=== PATIENT | female | born 1985 | race African-American/Black ===

== ENCOUNTER 2016-04-05 05:26 | Emergency (ER) ==
[2016-04-05] MEDS ORDERED: NORFLEX IM ONE (06:46)
[2016-04-05] MEDS ORDERED: TORADOL IM ONE (06:47)
--- NOTE | 2016-04-05 06:53 | PROVIDER DOCUMENTATION ---
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 Has a history of back spasms and low back pain. Says sometimes she has to be off of her feet.) Any recent injury?: No Locality of Occurance: Work Similar Symptoms Previously?: Yes Recently seen or treated by another doctor?: No - FALL INJURY Location of Pain/Injury: reports: back Pain Radiation: reports: no radiation Loss of Consciousness: no loss of consciousness Injury Associated Symptoms: reports: denies symptoms - BACK & NECK PAIN/INJURY Back/Neck Pain Location: reports: lumbar spine Context / Method of Injury: reports: lifting, overuse Associated Symptoms: reports: lower back pain, muscle spasms History of Chronic Neck or Back Pain?: Yes - TRUNK INJURY Location of Injury(s)/Pain: reports: extends to back Context / Method of Injury: reports: none Associated Symptoms: reports: back/neck pain - HIP/PELVIS PAIN/INJURY Pain Radiation: reports: back Associated Symptoms: reports: muscle spasms - LOWER EXTREMITY PAIN/INJURY Associated Symptoms: reports: denies symptoms - UPPER EXTREMITY PAIN/INJURY Associated Symptoms: reports: muscle spasms Review of Systems - Adult - REVIEW OF SYSTEMS - ADULT ROS:: limited per condition Constitutional: reports: no symptoms reported Eyes: reports: no symptoms reported Ears, Nose, Mouth & Throat: reports: no symptoms reported Cardiovascular: reports: no symptoms reported Respiratory: reports: no symptoms reported Gastrointestinal: reports: no symptoms reported Genitourinary: reports: no symptoms reported Musculoskeletal: reports: back pain, joint pain, muscle weakness Integumentary: reports: no symptoms reported, itching Neurological: reports: no symptoms reported Psychiatric: reports: no symptoms reported Endocrine: reports: no symptoms reported Hematologic/Lymphatic: reports: no symptoms reported Allergic/Immunologic: reports: no symptoms reported All Other Systems: Reviewed and Negative Past History - Adult - PAST MEDICAL HISTORY-ADULT Review of Records: reports: Old Records Reviewed, Nursing Assessment Review, Medications Reviewed, Social history reviewed & non-contributory. Major Childhood Illnesses: reports: denies history Cardiovascular: reports: denies history Respiratory: reports: asthma Gastrointestinal: reports: denies history Obstetrical/Gynecological: reports: denies history Genitourinary: reports: denies history Musculoskeletal: reports: chronic pain Neurological: reports: denies history Psychiatric: reports: anxiety Endocrine/Immune: reports: denies history Other Conditions: reports: denies history - PRIOR SURGERIES/PROCEDURES Surgical/Procedure History: reports: none - PRIOR HOSPITALIZATIONS Prior Hospitalizations: reports: for other non-related - IMMUNIZATION STATUS Childhood Immunizations: See Nurse Assessment Flu Vaccine: See Nurse Assessment - FAMILY HISTORY Family History: reviewed, not pertinent Physical Exam-Injury Related - Physical Exam-Injury Related Initial Vital Signs Reviewed: Yes General Appearance: appears well Eyes: PERRL/EOMI, pink conjunctivae, fundi clear, no AV nicking Head, Ears, Nose, Mouth & Throat: normocephalic/atraumatic, moist mucous membranes, normal ENT inspection Neck: non-tender, full range of motion, supple Respiratory: chest non-tender, lungs clear, normal breath sounds, no pleuratic chest pain Cardiovascular: normal peripheral pulses, regular rate, rhythm, no edema Chest/Breast: deferred Abdominal Exam: normal bowel sounds, non tender, soft, no organomegaly Female Genitalia/Pelvic Exam: deferred Rectal Exam: deferred Hemoccult Exam: deferred Lymphatic: no adenopathy Back Exam: no vertebral tenderness, decreased range of motion, muscle spasm, vertebral tenderness Extremity: normal range of motion Integumentary: normal color, warm/dry 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, grossly normal, no motor/sensory deficits Progress - PLAN OF CARE/RESULTS Progress/Plan/Lab Results: Patient asleep in room Departure - Departure Time of Disposition Order: 06:54 DIAGNOSIS: Back pain Disposition: HOME 01 Certified Medical Emergency: Emergent Condition: Stable Prescriptions: Naproxen Sodium [Anaprox Ds] 550 mg PO BID #20 tablet Cyclobenzaprine [Flexeril] 10 mg PO TID #20 tablet Physician Attestation - Physician Attestation I, the provider, attest to the following statement:: Alessandro Ervin Physician documentation Attestation:: This documentation recorded by the scribe accurately reflects the service I personally performed and the decisions made by me.
[2016-04-05 07:31] VITALS: BP 119/78
== END 2016-04-05 07:31 | disposition home or self-care (01) ==
LOC: ED 05:26
DX: M54.5 Low back pain (principal); X50.9XXA Other and unspecified overexertion or strenuous movements or postures, initial encounter; M62.830 Muscle spasm of back; M25.50 Pain in unspecified joint; G89.29 Other chronic pain
CPT/HCPCS: J1885; J2360

== ENCOUNTER 2016-04-13 07:38 | Emergency (ER) ==
[2016-04-13 07:58] LABS: MANUAL DIFF NEEDED? NO
[2016-04-13 08:01] LABS: BASO% 0.2 % (0.0-0.8); HEMATOCRIT 38.5 % (37.0-47.0); HEMOGLOBIN 12.6 g/dL (12.0-16.0); LYMPH# 1.11 X1000 (1.2-3.4); LYMPH% 10.9 % (20.5-51.1); MCH 26.8 PG (27-31); MCHC 32.7 g/dL (33-37); MCV 81.7 FL (81-99); MONO% 4.9 % (1.7-9.3); MPV 10.2 FL (7.4-10.4); PLT 264 X1000 (130-400); RBC 4.71 XMIL (4.2-5.4)
[2016-04-13 08:03] LABS: URINE MICRO REVIEW NEEDED? NO; URINE SOURCE CLEAN CATCH
[2016-04-13 08:07] LABS: BILIRUBIN URINE NEGATIVE (NEGATIVE); BLOOD URINE TRACE (NEGATIVE); COLOR YELLOW; GLUCOSE URINE NEGATIVE (NEGATIVE); LEUKOCYTES URINE SMALL (NEGATIVE); NITRITE URINE NEGATIVE (NEGATIVE); PH URINE 5.5; PROTEIN URINE 50 mg/dL (NEGATIVE); SP GRAVITY URINE 1.035; TURBIDITY URINE HAZY (CLEAR); UR EPITHELIAL CELLS <10 /HPF (<10); URINE BACTERIA 1+ /HPF; URINE CULTURE NEEDED? YES; URINE RBC <10 /HPF (<10); UROBILINOGEN URINE 2 mg/dL (NORMAL)
[2016-04-13] MEDS ORDERED: ZOFRAN ODT PO ONE (08:08)
[2016-04-13] MEDS ORDERED: ROCEPHIN IM ONE (08:08)
[2016-04-13] MEDS ORDERED: XYLOCAINE-MPF 1% INJ ONE (08:08)
[2016-04-13 08:17] LABS: AGAP 18; ALBUMIN 4.6 g/dL (3.5-5.0); ALKALINE PHOSPHATASE 71 U/L (32-104); AMYLASE 124 U/L (20-200); BUN 8 mg/dL (8-22); CALCIUM 9.5 mg/dL (8.8-10.2); CHLORIDE 102 mmol/L (98-107); COSMO 281; GOT 20 U/L (10-30); GPT 8 U/L (10-36); LIPASE 26 U/L (13-60); POTASSIUM 3.7 mmol/L (3.5-5.1); SODIUM 142 mmol/L (136-145); TCO2 22 mmol/L (25-35); TOTAL BILIRUBIN 0.43 mg/dL (0.20-1.00); TOTAL PROTEIN 8.2 g/dL (6.3-8.3)
--- NOTE | 2016-04-13 09:22 | PROVIDER DOCUMENTATION ---
HPI-General Adult - General Chief Complaint: Nausea/Vomiting Stated Complaint: FLU LIKE SX Time Seen by Provider: 04/13/16 07:55 Source: patient Allergies/Adverse Reactions: Patient Allergies Allergy/AdvReac Type Severity Reaction Status Date / Time No Known Allergies Allergy Verified 04/13/16 08:10 Home Medications: Home Medication List Medication Instructions Recorded Confirmed Last Taken Type Albuterol Sulfate Inhaler 2 puff INH Q6H PRN PRN 10/14/15 04/13/16 Unknown History [Ventolin Hfa] Nitrofurantoin Monohyd/M-Cryst 100 mg PO TID #14 capsule 04/13/16 Unknown Rx [Macrobid 100 mg Capsule] Ondansetron Odt [Zofran 4 mg Odt] 4 mg PO Q6H PRN PRN #10 tablet 04/13/16 Unknown Rx Tramadol [Ultram] 50 mg PO Q8HR #10 tablet 04/13/16 Unknown Rx - History of Present Illness -Gen Adult Nature of Presenting Problems: N/V/F/LBP since yesterday. Denies dysuria/preg/diarrhea. Location of Pain/Injury: reports: back Pain Radiation: reports: no radiation Quality of Pain: reports: aching Severity: reports: moderate Onset/Duration: reports: last night Timing: reports: still present Context/Activities at Onset: reports: none Modifying Factors: improves with: nothing Associated Symptoms: reports: loss of appetite, malaise, nausea, vomiting. denies: anxiety, cough, diarrhea, shortness of breath, weakness Similar Symptoms Previously?: No Recently seen or treated by another doctor?: No Review of Systems - Adult - REVIEW OF SYSTEMS - ADULT Constitutional: reports: see HPI, fever, fatique Eyes: reports: no symptoms reported Ears, Nose, Mouth & Throat: reports: no symptoms reported Cardiovascular: reports: no symptoms reported Respiratory: reports: no symptoms reported Gastrointestinal: reports: no symptoms reported, nausea, vomiting Genitourinary: reports: no symptoms reported Musculoskeletal: reports: no symptoms reported Integumentary: reports: no symptoms reported Neurological: reports: no symptoms reported Endocrine: reports: no symptoms reported All Other Systems: Reviewed and Negative Past History - Adult - PAST MEDICAL HISTORY-ADULT Review of Records: reports: Nursing Assessment Review, Medications Reviewed Major Childhood Illnesses: reports: denies history Cardiovascular: reports: denies history Respiratory: reports: asthma Gastrointestinal: reports: denies history Obstetrical/Gynecological: reports: denies history Genitourinary: reports: denies history Musculoskeletal: reports: chronic pain Neurological: reports: denies history Psychiatric: reports: anxiety Endocrine/Immune: reports: denies history Other Conditions: reports: denies history - PRIOR SURGERIES/PROCEDURES Surgical/Procedure History: reports: none - PRIOR HOSPITALIZATIONS Prior Hospitalizations: reports: for other non-related - IMMUNIZATION STATUS Childhood Immunizations: See Nurse Assessment Flu Vaccine: See Nurse Assessment - FAMILY HISTORY Family History: reviewed, not pertinent Physical Exam-General - PHYSICAL EXAM-ADULT Initial Vital Signs Reviewed: Yes - CONSTITUTIONAL General Appearance: appears well, alert, no apparent distress - EYES Eyes: PERRL/EOMI, pink conjunctivae - HEAD, EARS, NOSE, MOUTH & THROAT HENMT: normocephalic/atraumatic, moist mucous membranes - NECK Neck: non-tender, full range of motion - RESPIRATORY Respiratory: chest non-tender, lungs clear, normal breath sounds - CARDIOVASCULAR Cardiovascular: normal peripheral pulses, regular rate, rhythm - GASTROINTESTINAL (ABDOMEN) Abdominal Exam: normal bowel sounds, soft, tenderness (Mild diffused tenderness) - MUSCULOSKELETAL Extremity: normal range of motion, non-tender, normal gait - SKIN Integumentary: normal color, normal turgor, warm/dry - NEUROLOGIC Neurologic: no motor/sensory deficits, abnormal cerebellar tests - PSYCHIATRIC Psych/Mental Status: normal mood/affect, normal thought content, normal thought process, oriented x 3 Progress - PLAN OF CARE/RESULTS Progress/Plan/Lab Results: Laboratory Results - last 24 hr 04/13/16 04/13/16 04/13/16 07:48 07:48 07:55 WBC 10.18 RBC 4.71 Hgb 12.6 Hct 38.5 MCV 81.7 MCH 26.8 L MCHC 32.7 L RDW Std Deviation 15.2 H Plt Count 264 MPV 10.2 Neut % (Auto) 84.0 H Lymph % (Auto) 10.9 L [place] % (Auto) 4.9 Eos % (Auto) 0.0 Baso % (Auto) 0.2 Neut # (Auto) 8.55 H Lymph # (Auto) 1.11 L [place] # (Auto) 0.50 Eos # (Auto) 0.00 Baso # (Auto) 0.02 Sodium 142 Potassium 3.7 Chloride 102 Carbon Dioxide 22 L Anion Gap 18 BUN 8 Creatinine 0.7 Estimated GFR/1.73 m2 > 60 BUN/Creatinine Ratio 11 Glucose 96 Calculated Osmolality 281 Calcium 9.5 Total Bilirubin 0.43 AST 20 ALT 8 L Alkaline Phosphatase 71 Total Protein 8.2 Albumin 4.6 Globulin 3.6 Albumin/Globulin Ratio 1.3 Amylase 124 Lipase 26 Urine Source CLEAN CATCH Urine Color YELLOW Urine Turbidity HAZY Urine pH 5.5 Ur Specific [place] 1.035 Urine Protein 50 A Ur Glucose (Stick) NEGATIVE Ur Ketones (Stick) >150 Urine Blood TRACE A Urine Nitrite NEGATIVE Urine Bilirubin NEGATIVE Urobilinogen Dipstick 2 A Urine Leukocytes SMALL A Urine WBC (Auto) 10-20 A Urine RBC (Auto) <10 U Epithel Cells (Auto) <10 Urine Bacteria (Auto) 1+ Urine Test 04/13/16 07:55 WBC RBC Hgb Hct MCV MCH MCHC RDW Std Deviation Plt Count MPV Neut % (Auto) Lymph % (Auto) [place] % (Auto) Eos % (Auto) Baso % (Auto) Neut # (Auto) Lymph # (Auto) [place] # (Auto) Eos # (Auto) Baso # (Auto) Sodium Potassium Chloride Carbon Dioxide Anion Gap BUN Creatinine Estimated GFR/1.73 m2 BUN/Creatinine Ratio Glucose Calculated Osmolality Calcium Total Bilirubin AST ALT Alkaline Phosphatase Total Protein Albumin Globulin Albumin/Globulin Ratio Amylase Lipase Urine Source Urine Color Urine Turbidity Urine pH Ur Specific [place] Urine Protein Ur Glucose (Stick) Ur Ketones (Stick) Urine Blood Urine Nitrite Urine Bilirubin Urobilinogen Dipstick Urine Leukocytes Urine WBC (Auto) Urine RBC (Auto) U Epithel Cells (Auto) Urine Bacteria (Auto) Urine Test NEGATIVE Bedside Urine ED: Urine Bedside Start: 04/13/16 07:46 Freq: ORDERED Status: Inactive Activity Type Activity Date Activity User Co-Sign Detail Recorded Client Recorded Date Recorded By Edit Status 04/13/16 08:00 [id number] Active=>Inactive [id number] 04/13/16 08:00 [id number] Orders Category Date Time Status ED: Urine Bedside ORDERED Care 04/13/16 07:46 Inactive AMYLASE [CHEM] Stat Lab 04/13/16 07:48 Completed CBC WITH ELECTRONIC DIFF [HEME] Stat Lab 04/13/16 07:48 Completed COMPREHENSIVE METABOLIC PANEL [CHEM] Stat Lab 04/13/16 07:48 Completed DIRECT STREP Stat Lab 04/13/16 07:50 Completed INFLUENZA SCREEN A/B Stat Lab 04/13/16 08:45 Received LIPASE [CHEM] Stat Lab 04/13/16 07:48 Completed UCG [ TEST-URINE] [PREG] Stat Lab 04/13/16 07:55 Completed URINALYSIS W/POSS RFLX CULT [URINALYSIS] Stat Lab 04/13/16 07:55 Completed URINE CULTURE [RM] Routine Lab 04/13/16 08:17 Received CefTRIAXONE [Rocephin] Med 04/13/16 08:08 Discontinued 1 gm IM NOW ONE Lidocaine 1% Pf [Xylocaine-Mpf 1%] Med 04/13/16 08:08 Discontinued 5 ml INJ NOW ONE Ondansetron Odt [Zofran Odt] Med 04/13/16 08:08 Discontinued 4 mg PO NOW ONE Vital Signs Temp Pulse Resp BP Pulse Ox 04/13/16 07:41 98.3 F 70 18 127/94 100 No Known Allergies Allergy (Verified 04/13/16 08:10) Albuterol Sulfate Inhaler [Ventolin Hfa] 2 puff INH Q6H PRN PRN 10/14/15 Laboratory 04/13/16 04/13/16 04/13/16 07:55 07:55 07:48 WBC 10.18 RBC 4.71 Hgb 12.6 Hct 38.5 MCV 81.7 MCH 26.8 L MCHC 32.7 L RDW Std Deviation 15.2 H Plt Count 264 MPV 10.2 Neut % (Auto) 84.0 H Lymph % (Auto) 10.9 L [place] % (Auto) 4.9 Eos % (Auto) 0.0 Baso % (Auto) 0.2 Neut # (Auto) 8.55 H Lymph # (Auto) 1.11 L [place] # (Auto) 0.50 Eos # (Auto) 0.00 Baso # (Auto) 0.02 Sodium Potassium Chloride Carbon Dioxide Anion Gap BUN Creatinine Estimated GFR/1.73 m2 BUN/Creatinine Ratio Glucose Calculated Osmolality Calcium Total Bilirubin AST ALT Alkaline Phosphatase Total Protein Albumin Globulin Albumin/Globulin Ratio Amylase Lipase Urine Source CLEAN CATCH Urine Color YELLOW Urine Turbidity HAZY Urine pH 5.5 Ur Specific [place] 1.035 Urine Protein 50 A Ur Glucose (Stick) NEGATIVE Ur Ketones (Stick) >150 Urine Blood TRACE A Urine Nitrite NEGATIVE Urine Bilirubin NEGATIVE Urobilinogen Dipstick 2 A Urine Leukocytes SMALL A Urine WBC (Auto) 10-20 A Urine RBC (Auto) <10 U Epithel Cells (Auto) <10 Urine Bacteria (Auto) 1+ Urine Test NEGATIVE 04/13/16 07:48 WBC RBC Hgb Hct MCV MCH MCHC RDW Std Deviation Plt Count MPV Neut % (Auto) Lymph % (Auto) [place] % (Auto) Eos % (Auto) Baso % (Auto) Neut # (Auto) Lymph # (Auto) [place] # (Auto) Eos # (Auto) Baso # (Auto) Sodium 142 Potassium 3.7 Chloride 102 Carbon Dioxide 22 L Anion Gap 18 BUN 8 Creatinine 0.7 Estimated GFR/1.73 m2 > 60 BUN/Creatinine Ratio 11 Glucose 96 Calculated Osmolality 281 Calcium 9.5 Total Bilirubin 0.43 AST 20 ALT 8 L Alkaline Phosphatase 71 Total Protein 8.2 Albumin 4.6 Globulin 3.6 Albumin/Globulin Ratio 1.3 Amylase 124 Lipase 26 Urine Source Urine Color Urine Turbidity Urine pH Ur Specific [place] Urine Protein Ur Glucose (Stick) Ur Ketones (Stick) Urine Blood Urine Nitrite Urine Bilirubin Urobilinogen Dipstick Urine Leukocytes Urine WBC (Auto) Urine RBC (Auto) U Epithel Cells (Auto) Urine Bacteria (Auto) Urine Test Departure - Departure Time of Disposition Order: 09:19 DIAGNOSIS: UTI (urinary tract infection) Qualifiers: Urinary tract infection type: acute cystitis Hematuria presence: without hematuria Qualified Code(s): N30.00 - Acute cystitis without hematuria Disposition: HOME 01 Certified Medical Emergency: Emergent Condition: Stable Additional Instructions: Follow up with regular MD in 2-3 days. Return to ER as needed. Prescriptions: Nitrofurantoin Monohyd/M-Cryst [Macrobid 100 mg Capsule] 100 mg PO TID #14 capsule Tramadol [Ultram] 50 mg PO Q8HR #10 tablet Ondansetron Odt [Zofran 4 mg Odt] 4 mg PO Q6H PRN PRN #10 tablet PRN Reason: Nausea And Vomiting Referrals: None,PCP [Primary Care Provider] -
[2016-04-13 10:07] VITALS: BP 122/80
== END 2016-04-13 10:08 | disposition home or self-care (01) ==
LOC: ED 07:38
DX: N30.00 Acute cystitis without hematuria (principal); R11.2 Nausea with vomiting, unspecified; R53.81 Other malaise; G89.29 Other chronic pain; J45.909 Unspecified asthma, uncomplicated
CPT/HCPCS: 80053; 81001; 81025; 82150; 83690; 85025; 87081; 87088; 87430; 87804; J0696

== ENCOUNTER 2016-04-18 07:40 | Emergency (ER) ==
[2016-04-18 07:53] VITALS: BP 138/60
--- NOTE | 2016-04-18 09:27 | PROVIDER DOCUMENTATION ---
HPI-Musculoskeletal Pain/Inj - GENERAL Chief Complaint: Back Pain Stated Complaint: KNOT ON SHOULDER Time Seen by Provider: 04/18/16 09:03 Source: patient - HX OF PRESENT ILLNESS-MUSKULOSKELTAL Nature of Presenting Problem: Pt presents to ED with c/o left shoulder and neck pain that started 2 weeks ago. She was seen by a provider and given some pain medication that she states hasn't helped, and she did not follow up with an orthopedic doctor. She denies any injury or trauma. She states that she is "unable to even turn my head". However, during my conversation I noted full ROM. No other issues or complaints. Quality of Pain: reports: aching Severity in ED: moderate Onset/Duration: other (see hpi) Timing: still present Modifying Factors: improves with: movement, palpation Any recent injury?: No Similar Symptoms Previously?: Yes Recently seen or treated by another doctor?: Yes Review of Systems - Adult - REVIEW OF SYSTEMS - ADULT Constitutional: reports: no symptoms reported. denies: chills, fever Eyes: reports: no symptoms reported. denies: discharge, dry eyes Ears, Nose, Mouth & Throat: reports: no symptoms reported. denies: ear discharge, ear pain Cardiovascular: reports: no symptoms reported. denies: chest pain, edema Respiratory: reports: no symptoms reported. denies: chronic cough, cough Gastrointestinal: reports: no symptoms reported. denies: abdominal pain, hematemesis Genitourinary: reports: no symptoms reported. denies: dysuria, discharge Musculoskeletal: reports: back pain, neck pain. denies: bone pain, joint pain, joint swelling Integumentary: reports: no symptoms reported. denies: hives, hair loss Neurological: reports: no symptoms reported. denies: ataxia, dizziness/vertigo Psychiatric: reports: no symptoms reported. denies: anxiety, anti-depressant use Endocrine: reports: no symptoms reported Hematologic/Lymphatic: reports: no symptoms reported Allergic/Immunologic: reports: no symptoms reported All Other Systems: Reviewed and Negative Past History - Adult - PAST MEDICAL HISTORY-ADULT Review of Records: reports: Old Records Reviewed, Nursing Assessment Review, Medications Reviewed, Social history reviewed & non-contributory. Major Childhood Illnesses: reports: denies history Cardiovascular: reports: denies history Respiratory: reports: asthma Gastrointestinal: reports: denies history Obstetrical/Gynecological: reports: denies history Genitourinary: reports: denies history Musculoskeletal: reports: chronic pain Neurological: reports: denies history Psychiatric: reports: anxiety Endocrine/Immune: reports: denies history Other Conditions: reports: denies history - PRIOR SURGERIES/PROCEDURES Surgical/Procedure History: reports: none - PRIOR HOSPITALIZATIONS Prior Hospitalizations: reports: for other non-related - IMMUNIZATION STATUS Childhood Immunizations: See Nurse Assessment Flu Vaccine: See Nurse Assessment - FAMILY HISTORY Family History: reviewed, not pertinent Physical Exam-Injury Related - Physical Exam-Injury Related Initial Vital Signs Reviewed: Yes General Appearance: appears well, alert, no apparent distress Eyes: PERRL/EOMI, pink conjunctivae Head, Ears, Nose, Mouth & Throat: normocephalic/atraumatic, moist mucous membranes, normal ENT inspection Neck: full range of motion, supple, normal inspection, pain on movement, tender lateral (left). negative: C-spine tenderness, vertebral point tenderness Respiratory: chest non-tender, lungs clear, normal breath sounds, no pleuratic chest pain, no respiratory distress, no accessory muscle use Cardiovascular: normal peripheral pulses, regular rate, rhythm Abdominal Exam: normal bowel sounds, non tender, soft Back Exam: no CVA tenderness, no vertebral tenderness, muscle spasm (left upper) Extremity: normal range of motion, non-tender, normal gait, normal inspection Integumentary: normal color, warm/dry, blanching Neurologic: grossly normal, no motor/sensory deficits Psych/Mental Status: normal thought content, normal thought process, oriented x 3, tearful Progress - PLAN OF CARE/RESULTS Progress/Plan/Lab Results: Orders Category Date Time Status Ketorolac [Toradol] Med 04/18/16 09:30 Discontinued 60 mg IM NOW ONE Orphenadrine [Norflex] Med 04/18/16 09:30 Discontinued 60 mg IM NOW ONE Vital Signs Temp Pulse Resp BP Pulse Ox 04/18/16 07:51 98.6 F 93 H 20 138/60 100 No Known Allergies Allergy (Verified 04/18/16 07:55) Nitrofurantoin Monohyd/M-Cryst [Macrobid 100 mg Capsule] 100 mg PO TID #14 capsule 04/13/16 Tramadol [Ultram] 50 mg PO Q8HR #10 tablet 04/13/16 Departure - Departure Time of Disposition Order: 09:33 DIAGNOSIS: Neck muscle strain Qualifiers: Encounter type: subsequent encounter Qualified Code(s): S16.1XXD - Strain of muscle, fascia and tendon at neck level, subsequent encounter Disposition: HOME 01 Certified Medical Emergency: Urgent Condition: Good Additional Instructions: Take medication as prescribed. Place Icy-Hot patch over the area. Follow up with an orthopedist. ED Follow Up Instructions: You have been treated by a care provider in the Emergency Department. These instructions are being provided to you so you can have an understanding of how to care for yourself upon discharge. Upon discharge from the Emergency Department, you are responsible for making arrangements for follow-up care by a physician of your choice. Take all prescribed medications as directed. Return to the Emergency Department immediately for any new or worsening symptoms. You may call the Physician Referral phone number at [phone] to obtain a list of Physicians who are taking new patients. Prescriptions: Cyclobenzaprine [Flexeril] 10 mg PO TID #20 tablet Meloxicam [Mobic] 7.5 mg PO DAILY PRN PRN #15 tablet PRN Reason: Pain Referrals: None,PCP [Primary Care Provider] - Brayan Bejarano MD [STAFF PHYSICIAN] - Attestation - Physician/ NANCY Attestation Patient care was provided by Advanced Practice Provider:: Yes Advanced Practice Provider:: Darell Lemus Advanced Practice Provider documentation review:: The Mid-level provider documentation, treatment plan and medical decision making was reviewed by the physician who agrees with all treatment and medical decision making by the [facility].
[2016-04-18] MEDS ORDERED: NORFLEX IM ONE (09:30)
[2016-04-18] MEDS ORDERED: TORADOL IM ONE (09:30)
== END 2016-04-18 10:08 | disposition home or self-care (01) ==
LOC: ED 07:40
DX: S16.1XXA Strain of muscle, fascia and tendon at neck level, initial encounter (principal); M25.512 Pain in left shoulder; M54.2 Cervicalgia; M54.9 Dorsalgia, unspecified; G89.29 Other chronic pain; Z79.899 Other long term (current) drug therapy
CPT/HCPCS: 96372; J1885; J2360